=== PATIENT | female | born 1975 | race African-American/Black ===

== ENCOUNTER → 2016-12-05 | Outpatient (CLI) | payer OTHER ==
--- NOTE | 2016-12-05 17:07 | REP ---
MRI BRAIN WITHOUT AND WITH CONTRAST: HISTORY: Pituitary cyst. CONTRAST: ProHance 8 mL. COMPARISON: 02/22/2016. Several punctate areas of increased signal intensity on T2 weighted images are present in the subcortical white matter. This represents small vessel ischemic disease. There is no intraparenchymal hemorrhage. Infarct mass or midline shift. The ventricular system is normal in appearance. There is no extra cerebral collection. A cyst is present in the posterior sella turcica. This measures 7 mm in transverse x 2.6 mm in AP X 7 mm in cephalocaudal dimensions and is unchanged in size compared to the previous study. The pituitary gland is normal in size measuring 6 mm in height. The infundibulum is midline. The cavernous sinuses, optic chiasm, and hypothalamus are normal in appearance. The sinuses are clear. IMPRESSION: There has been no change in signs of the 7 mm cyst present in the posterior sella turcica. 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 Signed by Marty De Jesus MD 12/05/2016 05:26 P
== END | disposition home or self-care (01) ==
LOC: M RAD 15:17
PROVIDERS: ATTEND Physician Assistant
DX: E23.6 Other disorders of pituitary gland (principal)
CPT/HCPCS: 70553; A9576

== ENCOUNTER → 2017-12-15 | Outpatient (CLI) | payer OTHER | LOC: M RAD 09:25 | DX: R92.0 Mammographic microcalcification found on diagnostic imaging of breast (principal) | CPT/HCPCS: 77067 ==

== ENCOUNTER → 2017-12-22 | Outpatient (CLI) | payer OTHER | LOC: M RAD 09:41 | DX: R92.8 Other abnormal and inconclusive findings on diagnostic imaging of breast (principal); R92.0 Mammographic microcalcification found on diagnostic imaging of breast | CPT/HCPCS: 77065 ==